=== PATIENT | male | born 1955 | race Caucasian/White ===

== ENCOUNTER 2019-12-22 08:46 | Outpatient (CLI) | payer OTHER, SELFPAY ==
[2019-12-22 13:14] LABS: Blood Urea Nitrogen 16 mg/dL (9-20); Calcium 9.9 mg/dL (8.4-10.2); Carbon Dioxide 30 mmol/L (22-30); Chloride 99 mmol/L (98-107); Cholesterol 131 mg/dL (0-200); Estimated Glomerular Filt Rate > 60; Glucose 109 mg/dL (75-110); HDL Direct 71 mg/dL; Potassium 5.3 mmol/L (3.4-5.0); Sodium 141 mmol/L (137-145); Triglycerides 53 mg/dL (<150)
[2019-12-22 13:25] LABS: LDL Cholesterol Direct 53 mg/dL
[2019-12-22 13:58] LABS: Creatinine Urine 200.3 mg/dL
[2019-12-22 14:10] LABS: Microalbumin Urine Random < 6.0 mg/L (0-16.7)
[2019-12-22 15:56] LABS: Free T4 Free Thyroxine 0.95 ng/mL (0.78-2.19)
[2019-12-23 07:54] LABS: MALB Creatinine Ratio < 3.0 mg/g (0-30)
== END 2019-12-22 08:47 | disposition home or self-care (01) ==
LOC: ANHWCLAB 08:54
PROVIDERS: PCP Family Medicine; Visit Provider Internal Medicine Endocrinology, Diabetes & Metabolism
DX: E10.9 Type 1 diabetes mellitus without complications (principal); E03.9 Hypothyroidism, unspecified
CPT/HCPCS: 36415; 80048; 80061; 82043; 84439; 84443

== ENCOUNTER 2021-10-18 00:26 | Day surgery (SDC) | payer MEDICARE, SELFPAY ==
[2021-10-09 13:57] VITALS: BMI 25.8
--- NOTE | 2021-10-18 07:33 | WPDANESEPPF ---
Anes - Initial Pre Proc Eval Procedure: Operation Date: 10/18/21 08:30 Proposed Procedures p Screening Colonoscopy - Bryon Singh MD Date/Time: 10/18/21 07:33 Surgeon: Bryon Singh MD Pre Op Diagnosis: family hx of colon ca Patient Data Age: 66 Gender: M Height: 1.8 m Weight: 84 kg Allergies Allergy/AdvReac Type Severity Reaction Status Date / Time No Known Allergies Allergy Unknown Verified 10/18/21 07:41 Home Medications Medication Instructions Recorded Confirmed Type aspirin 81 mg tablet,delayed 81 mg PO EVERY OTHER DAY 12/14/19 10/18/21 History release escitalopram oxalate 20 mg tablet 20 mg PO DAILY 12/14/19 10/18/21 History levothyroxine 125 mcg tablet 125 mcg PO DAILY #90 tablet 03/20/20 10/18/21 Rx blood sugar diagnostic #300 each 07/24/20 10/18/21 Rx glucagon 1 mg/0.2 mL subcutaneous 1 mg SUB-Q ONCE PRN #0.2 ml 07/24/20 10/18/21 Rx auto-injector insulin degludec 100 unit/mL (3 13 unit SUB-Q DAILY 90 Days #11.7 07/24/20 10/18/21 Rx mL) subcutaneous pen ml atorvastatin 10 mg tablet 10 mg PO DAILY #90 tablet 10/03/20 10/18/21 Rx pen needle, diabetic 32 gauge x See Rx Instructions .ROUTE 03/12/21 10/18/21 Rx 5/32 .COMPLEX #300 ea insulin aspart (niacinamide) 6 - 8 unit SUB-Q TID 10/09/21 10/18/21 History [Fiasp FlexTouch U-100 Insulin] zolpidem 10 mg PO HS PRN 10/09/21 10/18/21 History sodium,potassium,mag sulfates 17.5 See Rx Instructions PO .COMPLEX 10/11/21 10/18/21 Rx gram-3.13 gram-1.6 gram oral soln #354 ml Patient hx anesthesia problems: none Family hx anesthesia problems: none Results Review: All pre-operative results and documents have been reviewed as part of the pre-operative evaluation. PENDING SALE TO [facility] Past Medical History Medical History (Updated 10/18/21 @ 08:03 by Bryon Singh MD) Cataracts, bilateral Hepatitis Hypertension Hypothyroidism Type 1 diabetes mellitus Family History Family History Mother Family history of cataracts Father Family history of diabetes mellitus in first degree relative Other Cancer Cataract Social History Social History Smoking status: Former smoker Alcohol intake: current Drinks per week: 4 Anes - Eval Final PreProcedure Day of Procedure 10/18/21 07:33 Patient weight: overweight Heart: regular rate and rhythm Lungs: clear to auscultation and normal air movement Airway: Mallampati scale class II Neurological: alert and oriented Last oral intake: >/= 8 hours ASA classification: III Emergent: no Anesthetic plan: proceed Anesthesia type and monitoring: general GIVS and standard monitoring Results Review: All pre-operative results and documents have been reviewed as part of the pre-operative evaluation. Informed Consent: The patient's anesthetic plan and its attendant risks and benefits were discussed with the patient/family/POA. Questions were solicited and answers provided to the satisfaction of the patient/family/POA.
[2021-10-18 07:42] VITALS: BP 139/82; PULSE 66; RESP 17; TEMP 36.6; O2SAT 98; BMI 25.7
[2021-10-18] MEDS: LACTATED RINGERS 1,000 ML 150 ML IV CONT (08:00)
--- NOTE | 2021-10-18 08:02 | WPDGICN ---
Assessment and Plan Assessment and plan (1) Family history of colon cancer in mother: Code(s): Z80.0 - Family history of malignant neoplasm of digestive organs Status: Acute Assessment and Plan: Patient's mother had colon cancer. For this reason surveillance colonoscopy is advised now and and 5 year intervals in the future. GI Consult Note Consult date/time: 10/18/21 08:02 HPI: Ritchie Rebolledo is a 66 year old male Presents for screening colonoscopy. Patient's current weight appetite bowel movements are normal. He denies abdominal pain. He has had no bleeding. Family history is significant that his mother had colon cancer. Patient's last colonoscopy was almost 10 years ago. He presents today for screening colonoscopy. Review of Systems Review of Systems: All systems reviewed & are unremarkable except as noted in HPI and below [facility] Past Medical History Medical History (Updated 10/18/21 @ 08:03 by Bryon Singh MD) Cataracts, bilateral Hepatitis Hypertension Hypothyroidism Type 1 diabetes mellitus Family History Family History Mother Family history of cataracts Father Family history of diabetes mellitus in first degree relative Other Cancer Cataract Social History Social History Smoking status: Former smoker Alcohol intake: current Drinks per week: 4 Meds Home Medications and Allergies Home Medications Medication Instructions Recorded Confirmed Type aspirin 81 mg tablet,delayed 81 mg PO EVERY OTHER DAY 12/14/19 10/18/21 History release escitalopram oxalate 20 mg tablet 20 mg PO DAILY 12/14/19 10/18/21 History levothyroxine 125 mcg tablet 125 mcg PO DAILY #90 tablet 03/20/20 10/18/21 Rx blood sugar diagnostic #300 each 07/24/20 10/18/21 Rx glucagon 1 mg/0.2 mL subcutaneous 1 mg SUB-Q ONCE PRN #0.2 ml 07/24/20 10/18/21 Rx auto-injector insulin degludec 100 unit/mL (3 13 unit SUB-Q DAILY 90 Days #11.7 07/24/20 10/18/21 Rx mL) subcutaneous pen ml atorvastatin 10 mg tablet 10 mg PO DAILY #90 tablet 10/03/20 10/18/21 Rx pen needle, diabetic 32 gauge x See Rx Instructions .ROUTE 03/12/21 10/18/21 Rx .COMPLEX #300 ea insulin aspart (niacinamide) 6 - 8 unit SUB-Q TID 10/09/21 10/18/21 History [Fiasp FlexTouch U-100 Insulin] zolpidem 10 mg PO HS PRN 10/09/21 10/18/21 History sodium,potassium,mag sulfates 17.5 See Rx Instructions PO .COMPLEX 10/11/21 10/18/21 Rx gram-3.13 gram-1.6 gram oral soln #354 ml Allergies Allergy/AdvReac Type Severity Reaction Status Date / Time No Known Allergies Allergy Unknown Verified 10/18/21 07:41 Vital Signs Vital Signs - 24 hr 10/18/21 07:42 Temperature 98 F Pulse Rate 66 Respiratory Rate 17 Blood Pressure 139/82 Pulse Oximetry 98 Exam Narrative: Physical exam reveals patient to be alert. Vital signs stable. HEENT exam is unremarkable. Patient is anicteric. Lungs are clear to auscultation and percussion. Heart is without murmur or extra sounds. Abdominal exam bowel sounds are present soft nontender with no organomegaly. Digital external rectal exam normal.
[2021-10-18 08:06] LABS: Glucose Point of Care 163 mg/dl (65-105)
[2021-10-18] MEDS: SIMETHICONE ORAL SUSPENSION 20 MG/0.3 ML 30 ML BOTTLE 0.6 ML IRRIGATION (08:33)
[2021-10-18 08:43] VITALS: BP 103/48; PULSE 55; O2SAT 95
[2021-10-18 08:53] VITALS: BP 115/56; BP 150/74; PULSE 49; PULSE 51; RESP 17; O2SAT 100; O2SAT 98
== END 2021-10-18 09:14 | disposition home or self-care (01) ==
PROVIDERS: PCP Family Medicine; Visit Provider Internal Medicine Gastroenterology
PROC: 0DJD8ZZ Inspection of Lower Intestinal Tract, Via Natural or Artificial Opening Endoscopic (ICD-10-PCS; CPT 45378; principal; 2021-10-18 08:30)
DX: Z12.11 Encounter for screening for malignant neoplasm of colon (principal); K64.8 Other hemorrhoids; Z80.0 Family history of malignant neoplasm of digestive organs; I10 Essential (primary) hypertension; E03.9 Hypothyroidism, unspecified; E10.9 Type 1 diabetes mellitus without complications; Z87.891 Personal history of nicotine dependence; H26.9 Unspecified cataract; Z79.4 Long term (current) use of insulin; Z79.82 Long term (current) use of aspirin
CPT/HCPCS: G0105; 82948; J2704; J7120

== ENCOUNTER 2023-05-29 14:55 | Outpatient (CLI) | payer MEDICARE, SELFPAY ==
[2023-05-29 17:00] LABS: Alanine Aminotransferase 39 U/L (6-50); Albumin Level 4.9 g/dL (3.5-5.1); Alkaline Phosphatase 81 U/L (38-126); Anion Gap 8 mmol/L (8-16); Aspartate Amino Transferase 50 U/L (17-59); Bilirubin,Total 0.6 mg/dL (0.2-1.3); Blood Urea Nitrogen 23 mg/dL (9-20); Calcium 9.8 mg/dL (8.4-10.2); Carbon Dioxide 30 mmol/L (22-30); Chloride 98 mmol/L (98-107); Estimated Glomerular Filt Rate > 60; Glucose 161 mg/dL (65-110); HDL Direct 46 mg/dL; Potassium 4.9 mmol/L (3.4-5.0); Sodium 136 mmol/L (137-145)
[2023-05-29 17:11] LABS: LDL Cholesterol Direct 71 mg/dL
[2023-05-29 17:22] LABS: Free T4 Free Thyroxine 1.48 ng/mL (0.78-2.19); Vitamin D 25 Hydroxy 36.7 ng/mL
[2023-05-29 17:41] LABS: Creatinine Urine 91.7 mg/dL
[2023-05-29 18:23] LABS: MALB Creatinine Ratio < 6.5 mg/g (0-30); Microalbumin Urine Random < 6.0 mg/L (0-16.7)
== END 2023-05-29 14:56 | disposition home or self-care (01) ==
LOC: ANHWCLAB 14:57
PROVIDERS: PCP Family Medicine; Visit Provider Nurse Practitioner Family
DX: E03.9 Hypothyroidism, unspecified (principal); E11.9 Type 2 diabetes mellitus without complications; Z79.4 Long term (current) use of insulin
CPT/HCPCS: 36415; 80053; 82043; 82306; 82607; 83718; 83721; 84439; 84443